=== PATIENT | male | born 1965 | race Caucasian/White ===

== ENCOUNTER → 2020-07-15 | Outpatient (CLI) | payer BC ==
--- NOTE | 2020-07-15 19:23 | CT ---
EXAMINATION TYPE: CT sinus wo con DATE OF EXAM: 07/15/2020 COMPARISON: None HISTORY: Nasal congestion CT DLP: 642.5 mGycm CONTRAST: 0 mL of Isovue 300 The paranasal sinuses are examined in the axial plane at 2 mm thick sections. Reconstructed images i n the coronal plane were obtained. There is some mucosal thickening within the anterior right sphenoid sinus. Minimal mucosal thickening s within posterior ethmoid air cells. The maxillary sinuses are clear. The frontal sinuses are clear. The septum is evaluated. There is septal deviation to the left. Some left septal spurring is present .. The ostiomeatal units are patent. IMPRESSIONS: 1. Mild mucosal thickening within right anterior sphenoid sinus and posterior ethmoid air cells. 2. No suspicious air-fluid levels. 3. Left septal deviation
== END | disposition home or self-care (01) ==
LOC: RADCTMAIN 17:21
PROVIDERS: ATTEND Pediatrics
DX: J01.90 Acute sinusitis, unspecified (principal); J34.89 Other specified disorders of nose and nasal sinuses; J34.2 Deviated nasal septum
CPT/HCPCS: 70486

== ENCOUNTER 2023-01-27 07:15 | Day surgery (SDC) | payer BC ==
[~2023-01-27 07:15] MED LIST: ACETAMINOPHEN TAB 500 MG TAB PO PRN; DEXAMETHASONE SOD PHOSPHATE 4 MG/ML 1 ML VIAL IV ONE; HEPARIN SODIUM,PORCINE/PF 5,000 UNIT/0.5 ML SYRINGE SQ PRN; HYDROmorphone 0.5 MG/0.5 ML SYRINGE IVP PRN; LACTATED RINGERS 1,000 ML IV SCH; MIDAZOLAM 2 MG/2 ML VIAL IV PRN; ONDANSETRON 4 MG/2 ML VIAL IVP ONE; Pre Op ABX Message 1 EACH MISC MISCELLANE ONE; SCOPOLAMINE 1 MG/72 HR PATCH TRANSDERM ONE
--- NOTE | 2023-01-27 07:39 | P.GSHP ---
History of Present Illness H&P Date: 01/27/23 Chief Complaint: Right posterior neck lipoma 57-year-old male here for excision right posterior neck lipoma. Recent increase in size gradually. Mild soreness. Recent imaging shows 4 x 2 cm lipomatous mass. Past Medical History Past Medical History: CVA/TIA, Hyperlipidemia, Hypertension, Prostate Disorder Additional Past Medical History / Comment(s): enlarged prostate, hemorrhagic stroke due to spinal fluid loss from back fusion surgery, tinnitus History of Any Multi-Drug Resistant Organisms: None Reported Past Surgical History: Back Surgery, Hernia Repair Additional Past Surgical History / Comment(s): back fusion x2, illiac stents x2, hernia x2, spinal cord stimulator placed and removed. Past Anesthesia/Blood Transfusion Reactions: No Reported Reaction Additional Past Anesthesia/Blood Transfusion Reaction / Comment(s): blood transfusion without reaction Smoking Status: Former smoker - Past Family History Mother Family Medical History: Cancer Additional Family Medical History / Comment(s): breast Medications and Allergies Home Medications Medication Instructions Recorded Confirmed Type DULoxetine HCL [Cymbalta] 60 mg PO BID 01/20/23 01/20/23 History Dutasteride [Avodart] 1 tab PO DAILY 01/20/23 01/20/23 History Ibuprofen 400 mg PO Q4-6H PRN 01/20/23 01/20/23 History Lisinopril(Unk) 10 mg PO DAILY 01/20/23 01/20/23 History Pregabalin 200 mg PO BID 01/20/23 01/20/23 History Rosuvastatin Calcium 40 mg PO HS 01/20/23 01/20/23 History Tamsulosin HCl [Flomax] 0.4 mg PO HS 01/20/23 01/20/23 History Tapentadol HCl [Nucynta] 50 mg PO DAILY 01/20/23 01/20/23 History Allergies Allergy/AdvReac Type Severity Reaction Status Date / Time Unable to Assess Allergy Verified 01/19/23 16:12 Surgical - Exam Physical exam: General: Well-developed, well-nourished HEENT: Normocephalic, sclerae nonicteric, 5 x 3 cm lipoma right posterior neck Abdomen: Nontender, nondistended Extremities: No edema Neuro: Alert and oriented Assessment and Plan (1) Lipoma of neck Narrative/Plan: Will proceed with excision right posterior neck lipoma at this time. Risks of bleeding, infection, numbness, scarring, nerve injury, recurrence, seroma reviewed. He understands and wishes to proceed. Current Visit: Yes Status: Acute Code(s): D17.0 - ESTEVAN LIPOMATOUS NEOPLM OF SKIN, SUBCU OF HEAD, FACE AND NECK SNOMED Code(s): 51721574
[2023-01-27] MEDS ORDERED: KETOROLAC 30 MG/ML 1 ML VIAL ONE (08:16)
[2023-01-27] MEDS ORDERED: LIDOCAINE 2% INJ 20 MG/ML (2 ML VIAL) ONE (08:16)
[2023-01-27] MEDS ORDERED: GLYCOPYRROLATE 0.2 MG/ML 2 ML VIAL ONE (08:16)
[2023-01-27] MEDS ORDERED: ROCURONIUM 10 MG/ML (5 ML VIAL) IV ONE (08:16)
[2023-01-27] MEDS ORDERED: SUCCINYLCHOLINE CHLORIDE 200 MG/10 ML VIAL IV ONE (08:16)
[2023-01-27] MEDS ORDERED: NEOSTIGMINE 1 MG/ML 10 ML VIAL ONE (08:16)
[2023-01-27] MEDS ORDERED: NALOXONE 0.4 MG/ML 1 ML VIAL ONE (08:16)
[2023-01-27] MEDS ORDERED: PROPOFOL 10 MG/ML 20 ML VIAL IV ONE (08:16)
[2023-01-27] MEDS ORDERED: fentaNYL (PF) 50 MCG/ML 2 ML AMP ONE (08:16)
[2023-01-27] MEDS ORDERED: MIDAZOLAM 2 MG/2 ML VIAL ONE (08:16)
[2023-01-27] MEDS ORDERED: SODIUM CHLORIDE 0.9% 50 ML with ceFAZolin 2,000 MG IV ONE ×2 (08:30)
[2023-01-27] MEDS ORDERED: SODIUM CHLORIDE 0.9% 100 ML BAG ONE (08:30)
[2023-01-27] MEDS ORDERED: ceFAZolin 1,000 MG VIAL ONE (08:30)
[2023-01-27] MEDS ORDERED: BUPIVACAINE (PF) 0.25% 10 ML VIAL SQ ONE ×2 (08:45→08:54)
[2023-01-27] MEDS ORDERED: HYDROcodone/APAP 5-325MG 1 EACH TAB PO PRN (09:14)
[2023-01-27] MEDS ORDERED: NALOXONE 0.4 MG/ML 1 ML VIAL IV PRN (09:14)
--- NOTE | 2023-01-27 09:19 | P.OP ---
Date of Procedure: 01/27/23 Procedure(s) Performed: PREOPERATIVE DIAGNOSIS: Right posterior neck lipoma POSTOPERATIVE DIAGNOSIS: Same PROCEDURE: Excision right posterior neck lipoma with intermediate closure SURGEON: Danny SIERRA: Jannie Naranjo ANESTHESIA: Gen. COMPLICATIONS: None OPERATIVE PROCEDURE: Patient placed on the operative table in the supine position. Patient was placed under general anesthesia. The patient was placed in the right decubitus position. Right posterior neck prepped and draped sterilely. Horizontal incision made overlying the palpable mass. Dissection through the superficial subcutaneous fat took place using electrocautery. The lipoma was then encountered and able to be easily differentiated from the normal-appearing fat. About two thirds of this lipoma was able to be bluntly dissected. The remaining one third was excised using electrocautery. This measured 4 x 4 x 3 cm. Subcutaneous tissues were inspected. No bleeding was seen. Irrigation took place. Area was localized. Subcutaneous layers closed using interrupted 3-0 Vicryl sutures. Skin closed using a running 4-0 Monocryl suture. Skin glue applied. DISPOSITION: Stable to recovery room
[2023-01-27 09:30] VITALS: TEMP 97.1
[2023-01-27] MEDS ORDERED: ONDANSETRON 4 MG/2 ML VIAL IVP ONE (09:43)
[2023-01-27 10:20] VITALS: BP 122/73; PULSE 71; RESP 18
== END 2023-01-27 10:38 | disposition home or self-care (01) ==
LOC: OR 07:15
PROVIDERS: ATTEND Surgery
DX: D17.0 Benign lipomatous neoplasm of skin and subcutaneous tissue of head, face and neck (principal); I10 Essential (primary) hypertension; E78.5 Hyperlipidemia, unspecified; N42.9 Disorder of prostate, unspecified; Z98.890 Other specified postprocedural states; Z86.73 Personal history of transient ischemic attack (TIA), and cerebral infarction without residual deficits; Z87.891 Personal history of nicotine dependence; Z79.811 Long term (current) use of aromatase inhibitors; Z79.899 Other long term (current) drug therapy
CPT/HCPCS: 21552; 88304; 88305; J2250; J0330; J1100; J2310; J2710; J2405; J0690; J3010; J1885; J2704; J1644; J2001; J0665

== ENCOUNTER 2023-11-22 11:31 | Day surgery (SDC) | payer BC ==
[~2023-11-22 11:31] MED LIST changes: -ACETAMINOPHEN TAB 500 MG TAB PO PRN; -DEXAMETHASONE SOD PHOSPHATE 4 MG/ML 1 ML VIAL IV ONE; -HEPARIN SODIUM,PORCINE/PF 5,000 UNIT/0.5 ML SYRINGE SQ PRN; -LACTATED RINGERS 1,000 ML IV SCH; -MIDAZOLAM 2 MG/2 ML VIAL IV PRN; -ONDANSETRON 4 MG/2 ML VIAL IVP ONE; +ONDANSETRON 4 MG/2 ML VIAL IVP PRN; -Pre Op ABX Message 1 EACH MISC MISCELLANE ONE; -SCOPOLAMINE 1 MG/72 HR PATCH TRANSDERM ONE; +TRANEXAMIC 1,000 MG/100ML-NACL 1,000 MG in SALINE 1 100ML.BAG IV PRN; +TRANEXAMIC 1,000 MG/100ML-NACL 1,000 MG in SALINE 1 100ML.BAG IVPB PRN; +fentaNYL (PF) 50 MCG/ML 2 ML AMP IV PRN
[2023-11-22] MEDS: KETOROLAC 15 MG/ML 1 ML VIAL IVP PRN (12:04)
[2023-11-22] MEDS: FAMOTIDINE 20 MG/2 ML VIAL IVP PRN (12:05)
[2023-11-22] MEDS: ONDANSETRON 4 MG/2 ML VIAL IVP ONE (12:05)
[2023-11-22] MEDS: DEXAMETHASONE SOD PHOSPHATE 10 MG/ML 1 ML VIAL IV PRN (12:05)
[2023-11-22] MEDS: ACETAMINOPHEN TAB 500 MG TAB PO PRN (12:05)
[2023-11-22] MEDS: DOCUSATE 100 MG CAP PO PRN (12:06)
[2023-11-22] MEDS: oxyCODONE ER 10 MG TAB.ER.12H PO PRN (12:06)
[2023-11-22] MEDS: IV FLUID CONTINUATION 1,000 ML IV ONE (12:10)
[2023-11-22] MEDS: MIDAZOLAM 2 MG/2 ML VIAL IVP ONE (12:13)
[2023-11-22] MEDS: LACTATED RINGERS 1,000 ML IV SCH (12:29)
[2023-11-22] MEDS ORDERED: TRANEXAMIC 1,000 MG/100ML-NACL PREMIX BAG ONE (13:35)
[2023-11-22] MEDS ORDERED: GLYCOPYRROLATE 0.2 MG/ML 2 ML VIAL ONE (13:35)
[2023-11-22] MEDS ORDERED: SUCCINYLCHOLINE CHLORIDE 200 MG/10 ML VIAL IV ONE (13:35)
[2023-11-22] MEDS ORDERED: ROPIVACAINE 5 MG/ML 30 ML VIAL ONE (13:35)
[2023-11-22] MEDS ORDERED: PROPOFOL 10 MG/ML 20 ML VIAL IV ONE (13:35)
[2023-11-22] MEDS ORDERED: PHENYLEPHRINE 10 MG/ML VIAL ONE (13:35)
[2023-11-22] MEDS ORDERED: MIDAZOLAM 2 MG/2 ML VIAL ONE (13:35)
[2023-11-22] MEDS ORDERED: LIDOCAINE 1% INJ 10MG/ML (20 ML MDV) ONE (13:35)
[2023-11-22] MEDS ORDERED: HYDROmorphone (PF) 1 MG/ML ONE (13:35)
[2023-11-22] MEDS ORDERED: DEXAMETHASONE SOD PHOSPHATE 4 MG/ML 1 ML VIAL ONE (13:35)
[2023-11-22] MEDS ORDERED: ROCURONIUM 10 MG/ML (5 ML VIAL) IV ONE (13:35)
[2023-11-22] MEDS ORDERED: NEOSTIGMINE 1 MG/ML 10 ML VIAL ONE (13:35)
[2023-11-22] MEDS ORDERED: fentaNYL (PF) 50 MCG/ML 2 ML AMP ONE (13:35)
[2023-11-22] MEDS: ROPIVACAINE/EPI/CLONIDINE/KET 50 ML SYRINGE MISCELLANE PRN (14:15)
[2023-11-22] MEDS: LACTATED RINGERS 1,000 ML IV ONE (15:06)
[2023-11-22] MEDS ORDERED: HYDROcodone/APAP 5-325MG 1 EACH TAB PO PRN (15:59)
[2023-11-22] MEDS ORDERED: hydrOXYzine pamoate 25 MG CAP PO PRN (15:59)
[2023-11-22] MEDS ORDERED: MAGNESIUM HYDROXIDE 2,400 MG/30 ML CUP PO PRN (15:59)
[2023-11-22] MEDS ORDERED: ONDANSETRON 4 MG/2 ML VIAL IVP PRN (15:59)
[2023-11-22] MEDS ORDERED: NALOXONE 0.4 MG/ML 1 ML VIAL IV PRN (15:59)
--- NOTE | 2023-11-22 16:12 | P.OP ---
Date of Procedure: 11/22/23 Preoperative Diagnosis: severe right hip osteoarthritis Postoperative Diagnosis: same Procedure(s) Performed: right direct anterior total hip arthroplasty Implants: 1. [employer] Trident II Acetabular Cup, Size #52 2. Dayanara Insignia Size # 6 Femoral Stem, Standard Offset 3. Biolox delta femoral head, 36 mm, - 2.5 neck Anesthesia: GETA, regional Surgeon: Chris Swenson Anesthetist #1: Obed Sanchez Estimated Blood Loss (ml): 300 IV fluids (ml): 900 Pathology: none sent Condition: stable Disposition: PACU Indications for Procedure: the patient is a very pleasant 58-year-old male with a medical history significant for chronic low back pain and prior lumbar spine surgery while been seeing for right hip pain. His hip x-rays initially showed mild arthritis and an MRI was obtained which showed more diffuse arthritis. He had a diagnostic injection which had almost complete relief in his symptoms. His x-rays showed progressive arthritis with the most recent x-rays in September of this year showing complete loss of joint space. Given the patient's x-ray findings, MRI findings, and response to cortisone injection we both agreed to proceed with a total hip replacement. I had a long discussion with the patient in the office on the potential risks and complications of an elective total hip replacement through a direct anterior approach. Risks discussed include, but are certainly not limited to, risks from anesthesia, superficial infection requiring local wound care or antibiotics, deep jeff-prosthetic joint infection and the treatment required to eradicate infection, intraoperative fracture, postoperative periprosthetic fracture, damage to local blood vessels or nerves particularly the lateral femoral cutaneous nerve, delayed wound healing requiring local wound care or possibly sims rgical debridement, hip dislocation, leg length discrepancy, soft tissue irritation around the total hip implant such as iliopsoas tendinitis or trochanteric bursitis, wear and osteolysis from the implants, squeaking or audible noises, groin pain, thigh pain, heterotopic ossification, stiffness, aseptic loosening of the implants, dissatisfaction with surgical outcome, need for revision surgery, DVT, PE, swelling of the operative extremity, acute coronary event, stroke, failure to thrive, and possibly loss of life or limb. The patient understands that while these are the most common complications after an elective hip replacement there are certainly other less common complications possible. They were given ample time to ask questions regarding the potential complications of a hip replacement. Following our discussion the patient provided their verbal and written consent to go forward with an elective total hip replacement. Operative Findings: It was a large clear hip effusion. There was severe arthritis with multiple loose cartilaginous free bodies within the joint and delamination of the articular surface. Description of Procedure: The patient was identified in the preoperative holding area and the correct hip was marked with my initials. I reviewed the procedure and consent with the patient. All of their questions were answered. The patient was then brought back into the operating room by anesthesia. While on the [facility] anesthesia was administered by the anesthesia team. Preoperative antibiotics and tranexamic ac id were also given. After the patient was under anesthesia I examined their ankles to determine their preoperative leg length discrepancy. The skin over the anterior aspect of the hip was shaved to remove hair over the site of planned incision. Both feet and ankles were padded with webril and boots for the [place] were applied. The patient was then carefully transferred onto the [place] table. A perineal post was immediately placed. The arms were placed on arm holders and were well-padded. Both boots were secured to the spars on the [place] table. The patient was positioned so that the pelvis was centered over the post. Nonsterile drapes were applied. A timeout was performed identifying the correct patient, operative extremity, and procedure. At this point fluoroscopy was brought in to take preoperative images of the pelvis and operative hip. Using the standing AP pelvis from the office as a template, a comparable image was obtained with fluoroscopy. A metallic bar was used to create a bi-ischial line for use as a reference to leg length adjustments during the procedure. Global offset was also measured on both the operative and nonoperative leg. Fluoroscopy was then brought out and a pre-scrub using a chlorhexidine scrub brush was performed. The operative limb was then prepped and draped in the standard sterile fashion. An anterior longitudinal incision was made lateral and distal to the ASIS. The skin and subcutaneous tissues were incised sharply. The underlying tensor fascia was identified and incised in its midportion. The fascia was dissected free from the underlying muscle and the muscle belly was retracted. A blunt tipped cobra retractor was placed over the superior neck under the muscle fibers of the gluteus minimus. The deep enveloping fascia of the tensor was incised. The anterior leash of vessels were then identified and cauterized. The fascia between the rectus and the capsule was then incised and the pre-capsular fat was excised. A second Cobra was placed inferior to the neck. The interval between the rectus and iliocapsularis and the hip capsule was developed and a retractor was placed carefully over the anterior rim of the acetabulum. A T-shaped anterior capsulotomy was performed. The superior capsular leaflet was left in place in the inferior capsular flap was excised. The Cobra retractors were placed intracapsularly. We then made a femoral neck osteotomy according to preoperative and intraoperative templating and confirmed the level of the osteotomy using fluoroscopic imaging. The femoral head was removed, passed off to the back table, and sized. The superior capsular flap was excised. Retractors were placed circumferentially exposing the acetabulum. We then circumferentially debrided the acetabulum free of labrum and osteophytes. The pulvinar was removed to fully visualize the cotyloid fossa. We then sequentially reamed to achieve peripheral fit and excellent bleeding subchondral bone. The socket was thoroughly irrigated. The acetabular component was impacted into the appropriate position using fluoroscopy to guide version, inclination, and depth of insertion taking care to have a comparable image of the AP pelvis to the standing image taken in the office. An excellent press-fit was achieved and final position was confirmed using fluoroscopy. The press fit was augmented with bony cancellus dome screws. The liner was then impacted into the socket. Attention was then turned to the femur. The remnant dorsal lateral capsule was excised. The short external rotators were visible and protected. A bone hook was used to confirm appropriate translation of the trochanter away from the acetabulum. The leg was then extended and adducted and the bone hook was used to elevate the femur for broaching. A box osteotome and blunt tipped canal sound was then utilized to gain access to the femoral canal. We then sequentially broached the femur in appropriate anteversion until excellent torsional stability was achieved. The neck cut was brought flush to the trial broach with a calcar planar. A trial neck and head were then placed onto the broach and the hip was atraumatically reduced under direct visualization. External rotation to 90 was performed to assess stability. Fluoroscopy was brought in. An AP and lateral fluoroscopic image of the proximal femur was obtained to assess position and fill of the trial broach. An AP of the pelvis was then obtained and matched to the preoperative image taken. A bi-ischial bar was then placed and measurements were taken to assess changes in length and offset. The hip was then carefully dislocated, the proximal femur was exposed, and the trial implants were removed. The wound and proximal femur was thoroughly irrigated using sterile saline and pulsatile lavage. The final femoral implant was dispensed and gently tapped into place generating an excellent press-fit. The trunnion was cleansed and the final head was tapped into place to engage the Serrato taper. The acetabulum was irrigated and visualized to be free of debris. The hip was carefully reduced. Stability was checked clinically with external rotation to 90 and there was no evidence of instability. Final fluoroscopic images were taken. The wound was then thoroughly irrigated and soaked with a dilute Betadine rinse for 3 minutes. 3 L of sterile saline was irrigated through the wound using pulsatile lavage. Local anesthetic cocktail was injected into the soft tissues around the surgical field. The wound was then closed in layers. A sterile dressing was placed over the surgical incision. The drapes were taken down and the patient was carefully transferred off of the [place] table. Following removal of the boots the leg lengths felt acceptable. The patient was then taken to recovery room having tolerated the procedure well. Obed Sanchez PA-C was required as a skilled assistant men's soccer coach due to the complexity of surgery for patient positioning, draping, exposure, retraction, closure of wound and application of dressing. PLAN: The patient can weight-bear as tolerated on the operative extremity. DVT prophylaxis with aspirin 81 mg twice a day based on preoperative risk stratification. Physical therapy for gait training. Leave surgical dressing in place. Internal medicine for perioperative medical management.
--- NOTE | 2023-11-22 16:37 | XR ---
EXAMINATION TYPE: XR Hip Limited RT, [place] guidance operating room Intraoperative/procedural fluoroscopi c services were provided. Total fluoroscopy time is 41.6 seconds with a total of 8 submitted images t o PACS. Please see the operative/procedural note for further details. DAP: 3.3050 Gycm2
[2023-11-22] MEDS ORDERED: AZELASTINE 137MCG/SPRAY NASAL PRN (17:28)
[2023-11-22] MEDS ORDERED: LORATADINE 10 MG TAB PO PRN (17:28)
[2023-11-22] MEDS: HYDROmorphone 1 MG/ML 1 ML SYRINGE IVP PRN (17:48)
--- NOTE | 2023-11-22 20:22 | P.CONS ---
History of Present Illness - Reason for Consult Consult date: 11/22/23 Medical management Requesting physician: Chris Swenson - Chief Complaint Right hip surgery - History of Present Illness This is a pleasant 58-year-old patient who follows with Dr. Luciano Craig. Chronic stable medical conditions include COPD, TIA, hypertension, hyperlipidemia, BPH, chronic tinnitus, had a prior hemorrhagic stroke from spinal fluid leak following lumbar spine surgery. Currently postprocedure has some pain controlled. No nausea vomiting. Review of systems: GEN.: None EYES: None HEENT: [Tinnitus NECK: None RESPIRATORY: None CARDIOVASCULAR: None GASTROINTESTINAL: None GENITOURINARY: None MUSCULOSKELETAL: Joint pains e LYMPHATICS: None HEMATOLOGICAL: None PSYCHIATRY: None NEUROLOGICAL: None Social history: Retired from construction work. Smoked a pack a day for 15 to 20 years. Stopped in 2016. Alcohol rarely. Physical examination: VITAL SIGNS: Afebrile, 94, 16, 131 x 77, 96% on 2 L GENERAL: BMI 35.4, reclining bed awake not in distress. EYES: Pupils equal. Conjunctiva kisha l. HEENT: External appearance of nose and ears normal, oral cavity grossly normal. NECK: JVD not raised; masses not palpable. HEART: First and second heart sounds are normal; no edema. LUNGS: Respiratory rate normal; clear to auscultation. ABDOMEN: Soft, nontender, liver spleen not palpable, no masses palpable. PSYCH: Alert and oriented x3; mood and affect kisha l. MUSCULOSKELETAL:No Clubbing/cyanosis;muscles-grossly intact. Dressing over the right hip incision site NEUROLOGICAL: Cranial nerves grossly intact; no facial asymmetry, power and sensation grossly intact. LYMPHATICS: No lymph nodes palpable in the axilla and neck INVESTIGATIONS, reviewed in the clinical context: November 14, 2023: White count 5.3 hemoglobin 16.8 platelets 169 sodium 142 potassium 4.7 BUN 10.9 creatinine 0.9 Assessment plan: -Right total hip arthroplasty Pain controlled. IV cefazolin for infection prophylaxis. Aspirin for DVT prophylaxis -Obesity BMI 35.4 -GERD Omeprazole -BPH Flomax -Essential hypertension Hold off Zestril for now. Follow blood pressure closely. Care was discussed with the patient. Questions answered. Thank you Dr. 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 ears,currently no medications for COPD, PAD, chronic sinusitis, chronic back pain History of Any Multi-Drug Resistant Organisms: None Reported Past Surgical History: Back Surgery, Hernia Repair Additional Past Surgical History / Comment(s): back fusion x2 - 2 surgeries for spinal fluid leak repair 2016, illiac stents x2, umbilical and Rt. inguinal hernia repairs, spinal cord stimulator placed and removed Past Anesthesia/Blood Transfusion Reactions: No Reported Reaction Additional Past Anesthesia/Blood Transfusion Reaction / Comm: blood transfusion without reaction Past Psychological History: No Psychological Hx Reported Additional Psychological History / Comment(s): takes cymbalta and pregabalin for pain Smoking Status: Former smoker Past Alcohol Use History: Rare Additional Past Alcohol Use History / Comment(s): quit 2015, smoked 1ppd x 15-20 yrs. one drink/year Past Drug Use History: None Reported - Past Family History Mother Family Medical History: Chest Pain / Angina Additional Family Medical History / Comment(s): multiple benign breast tumors Father Family Medical History: Myocardial Infarction (MA) Medications and Allergies Home Medications Medication Instructions Recorded Confirmed Type DULoxetine HCL [Cymbalta] 60 mg PO BID 01/20/23 11/22/23 History Pregabalin 200 mg PO BID 01/20/23 11/22/23 History Rosuvastatin Calcium 40 mg PO HS 01/20/23 11/22/23 History Tamsulosin HCl [Flomax] 2 tab PO HS 01/20/23 11/22/23 History Tapentadol HCl [Nucynta] 50 mg PO Q6H PRN 01/20/23 11/22/23 History Azelastine HCl [Astepro] 1 spray NASAL BID PRN 11/17/23 11/22/23 History Cetirizine HCl [Zyrtec] 10 mg PO DAILY PRN 11/17/23 11/22/23 History Diclofenac Sodium [Voltaren] 75 mg PO BID 11/17/23 11/22/23 History Ergocalciferol [Vitamin D2 (1250 1,250 mcg PO WEEKLY 11/17/23 11/22/23 History Mcg = 61905 Iu)] lisinopriL [Zestril] 10 mg PO HS 11/17/23 11/22/23 History Aspirin 81 mg PO BID #60 tab 11/22/23 Rx Diclofenac Sodium [Voltaren] 75 mg PO BID #60 tab 11/22/23 Rx Docusate [Colace] 100 mg PO BID #60 capsule 11/22/23 Rx HYDROcodone/APAP 5-325MG [[place] 1 - 2 tab PO Q6HR PRN #32 tab 11/22/23 Rx 5-325] Omeprazole 40 mg PO DAILY #30 cap 11/22/23 Rx Allergies Allergy/AdvReac Type Severity Reaction Status Date / Time No Known Allergies Allergy Verified 11/22/23 11:50 Physical Exam Vitals: Vital Signs Temp Pulse Resp BP Pulse Ox 11/22/23 18:30 94 131/77 96 11/22/23 18:15 100 78/53 90 L 11/22/23 18:00 97 112/70 99 11/22/23 17:45 91 118/75 91 L 11/22/23 17:30 92 127/71 96 11/22/23 17:15 98.0 F 98 17 111/81 95 11/22/23 17:05 96 11/22/23 16:42 84 17 118/53 96 11/22/23 16:27 87 17 106/51 99 11/22/23 16:12 91 17 117/55 96 11/22/23 15:57 97.5 F L 107 H 14 117/55 96 11/22/23 12:19 88 16 144/73 96 11/22/23 12:01 98.4 F 91 16 147/89 95 Intake and Output 11/22/23 11/22/23 11/22/23 06:59 14:59 22:59 Intake Total 1050 940 Output Total 300 Balance 1050 640 Intake: IV 1050 400 Oral 540 Output: Estimated Blood Loss 300 Other: Weight 108.7 kg 108.7 kg
[2023-11-22] MEDS: SODIUM CHLORIDE 0.9% 1,000 ML IV SCH (21:08)
[2023-11-22] MEDS: PREGABALIN 100 MG CAP PO SCH (21:18)
[2023-11-22] MEDS: ASPIRIN 81 MG PO SCH (21:22)
[2023-11-22] MEDS: TAMSULOSIN 0.4 MG CAP.ER.24H PO SCH (21:22)
[2023-11-22] MEDS: SENNOSIDES-DOCUSATE SODIUM 1 EACH TAB PO SCH (21:23)
[2023-11-22] MEDS: DULoxetine HCL 60 MG CAPSULE.DR PO SCH (21:23)
[2023-11-22] MEDS: ATORVASTATIN 80 MG TAB PO SCH (21:23)
[2023-11-23] MEDS: HYDROcodone/APAP 10-325MG 1 EACH TAB PO PRN (03:54)
[2023-11-23] MEDS: MULTIVITAMINS, THERA 1 EACH TAB PO SCH (07:43)
[2023-11-23 07:59] VITALS: BP 124/70; PULSE 79; RESP 18; TEMP 97.9
[2023-11-23] MEDS: FAMOTIDINE 20 MG TAB PO SCH (08:02)
--- NOTE | 2023-11-23 09:28 | P.DS ---
Providers Expected date of discharge: 11/23/23 Attending physician: Chris Swenson Consults: 11/22/23 15:59 Consult Physician Routine Consulting Provider: Roc Dunbar Consult Reason/Comments: post op medical management Do you want consulting provider notified?: Yes Primary care physician: Ryder Craig - Discharge Diagnosis(es) (1) Osteoarthritis of right hip Current Visit: Yes Status: Acute (2) Status post total hip replacement, right Current Visit: Yes Status: Acute Hospital Course: This is a 58-year-old male patient, with past medical history of right hip osteoarthritis, who failed nonsurgical interventions, who underwent right direct anterior total hip arthroplasty and admitted on 11/22/2023. He has been up out of bed and walking. His pain has been well-controlled. His wound dressing is clean, dry, and intact. Plan to discharge home today. Please see med rec for a list of accurate medications. Patient Condition at Discharge: Good Plan - Discharge Summary Discharge Rx Participant: Yes New Discharge Prescriptions: New Aspirin 81 mg PO BID #60 tab Docusate [Colace] 100 mg PO BID #60 capsule Diclofenac Sodium [Voltaren] 75 mg PO BID #60 tab Omeprazole 40 mg PO DAILY #30 cap oxyCODONE-APAP 5-325MG [Percocet 5-325 mg] 1 tab PO Q6HR PRN #28 tab PRN Reason: Pain No Action Pregabalin 200 mg PO BID Tapentadol HCl [Nucynta] 50 mg PO Q6H PRN PRN Reason: Pain Tamsulosin HCl [Flomax] 2 tab PO HS Azelastine HCl [Astepro] 1 spray NASAL BID PRN PRN Reason: Allergy Symptoms lisinopriL [Zestril] 10 mg PO HS Cetirizine HCl [Zyrtec] 10 mg PO DAILY PRN PRN Reason: Allergy Symptoms Rosuvastatin Calcium 40 mg PO HS DULoxetine HCL [Cymbalta] 60 mg PO BID Ergocalciferol [Vitamin D2 (1250 Mcg = 87429 Iu)] 1,250 mcg PO WEEKLY Diclofenac Sodium [Voltaren] 75 mg PO BID Discharge Medication List DULoxetine HCL [Cymbalta] 60 mg PO BID 01/20/23 [History] Pregabalin 200 mg PO BID 01/20/23 [History] Rosuvastatin Calcium 40 mg PO HS 01/20/23 [History] Tamsulosin HCl [Flomax] 2 tab PO HS 01/20/23 [History] Tapentadol HCl [Nucynta] 50 mg PO Q6H PRN 01/20/23 [History] Azelastine HCl [Astepro] 1 spray NASAL BID PRN 11/17/23 [History] Cetirizine HCl [Zyrtec] 10 mg PO DAILY PRN 11/17/23 [History] Diclofenac Sodium [Voltaren] 75 mg PO BID 11/17/23 [History] Ergocalciferol [Vitamin D2 (1250 Mcg = 41310 Iu)] 1,250 mcg PO WEEKLY 11/17/23 [History] lisinopriL [Zestril] 10 mg PO HS 11/17/23 [History] Aspirin 81 mg PO BID #60 tab 11/22/23 [Rx] Diclofenac Sodium [Voltaren] 75 mg PO BID #60 tab 11/22/23 [Rx] Docusate [Colace] 100 mg PO BID #60 capsule 11/22/23 [Rx] Omeprazole 40 mg PO DAILY #30 cap 11/22/23 [Rx] oxyCODONE-APAP 5-325MG [Percocet 5-325 mg] 1 tab PO Q6HR PRN #28 tab 11/23/23 [Rx] Follow up Appointment(s)/Referral(s): Chris Swenson MD [Medical Doctor] - 2 Weeks Activity/Diet/Wound Care/Special Instructions: 1. Weight-bear as tolerated on your operative extremity unless instructed otherwise. Use a walker or other assistive device to ambulate. 2. Leave surgical dressing in place. If your dressing becomes saturated with blood, there is drainage, or the dressing becomes loose please contact the office. 3. It is okay to shower with your surgical dressing, but do not submerge in water (no hot tubs, bath's, swimming etc.) 4. Make sure to take her blood clot prevention medication as prescribed (aspirin, Eliquis, Xarelto, and Plavix are commonly prescribed medications for blood clot prevention) 5. While taking Dinuba or Percocet for pain make sure you're taking a stool softener (Colace) and drink lots of water. 6. Keep all follow-up appointments as scheduled. You will usually be seen in 1-2 weeks following surgery. 7. Please contact the office with any questions or concerns [phone] Discharge Disposition: HOME WITH HOME HEALTH SERVICES
[2023-11-23 09:48] LABS: Basophils # (A) 0.02 X 10*3/uL (0.00-0.10); Basophils % (A) 0.1 %; Eosinophils # (A) 0 X 10*3/uL (0.04-0.35); Eosinophils % (A) 0 %; HCT 40.3 % (39.6-50.0); HGB 13.3 g/dL (13.0-17.0); Lymphocytes # (A) 0.73 X 10*3/uL (0.90-5.00); Lymphocytes % (A) 5.1 %; MCV 97.1 FL (80.0-97.0); Mean Platelet Volume 12.5 FL (9.5-12.2); Monocytes # (A) 0.85 X 10*3/uL (0.20-1.00); NRBC Per 100 WBC 0 X 10*3/uL (0.00-0.01); Neutrophils # (A) 12.63 X 10*3/uL (1.80-7.70); Neutrophils % (A) 88.4 %; Platelet Count 157 X 10*3/uL (140-440); RBC 4.15 X 10*6/uL (4.40-5.60); RDW 13.6 % (11.5-14.5); WBC 14.28 X 10*3/uL (4.50-10.00)
== END 2023-11-23 13:19 | disposition home health service (06) ==
LOC: OR 11:31 → 4SSUR 16:31 → OR 11-23 13:19
PROVIDERS: ATTEND Orthopaedic Surgery
DX: M16.11 Unilateral primary osteoarthritis, right hip (principal); E66.9 Obesity, unspecified; E78.5 Hyperlipidemia, unspecified; G89.18 Other acute postprocedural pain; G89.29 Other chronic pain; I10 Essential (primary) hypertension; J44.9 Chronic obstructive pulmonary disease, unspecified; K21.9 Gastro-esophageal reflux disease without esophagitis; N40.0 Benign prostatic hyperplasia without lower urinary tract symptoms; Z68.35 Body mass index [BMI] 35.0-35.9, adult; Z79.82 Long term (current) use of aspirin; Z79.899 Other long term (current) drug therapy; Z86.73 Personal history of transient ischemic attack (TIA), and cerebral infarction without residual deficits; Z98.890 Other specified postprocedural states
CPT/HCPCS: 94760; 97161; 64447; 85025; 73501; 27130; C1776; J2250; J1100; J0690 ×2; J2405; J3490; J1170 ×2; J1885

== ENCOUNTER → 2024-04-29 | Outpatient (CLI) | payer BC ==
[2024-04-29 12:45] VITALS: BP 148/90; PULSE 75; RESP 16
--- NOTE | 2024-04-29 17:38 | P.PAINPG ---
PQRS Measure Charge Sheet Comment: HISTORY OF PRESENT ILLNESS: A 59 yr old male as a referral from [facility] presents today w severe and chronic LBP > 10 yrs secondary to L4-S1 Laminectomy/ Fusion, R L4-S1 Pedicle Screws, BL Sacroiliitis for evaluation. Pt states pain level is provoked at 6 /10 in intensity, constant, localized in the lumbar spine, predominantly axial, dull in character w occasional shooting pain towards the BLEs. Pain is provoked by walking/ standing for periods > 15 min. Pain is alleviated by heat, ice, medications (Cymbalta, Lyrica), topical BioFreeze Gel, repositioning and rest . He has a narcotic agreement intact for [id number] #90 w a MME of 60 and was advised to adhere to it. PMH: OA, COPD, CVA (Hemorrhagic 2016), Hyperlipidemia, HTN, PAD, BPH PSH: L4-S1 Laminectomy/ Fusion x2 (2016), R L4-S1 Pedicle Screws, SCS placement/ removal, Iliac Stents x2, Umbilical Hernia Repair, R Inguinal Hernia Repair SH: Former 20 pack/ yr tobacco user, Rare ETOH use, No illicit drug use FH: Mo- Angina Fa- [place] All: See list Meds: See list REVIEW OF ORGAN SYSTEMS: CONSTITUTIONAL: No fevers or chills. No recent weight loss. NEUROLOGICAL: + numbness and tingling along the distal extremities. No seizure disorders or headaches. MUSCULOSKELETAL: + pain PSYCHIATRIC: Denies current depression or suicidal thoughts. Physical Examinations : Constitutional : Cooperative , not in acute distress . Neurologic : Cranial nerve II to XII intact. No focal neurological deficits. Psychiatric : alert & oriented x 3. Matching mood & appropriate affect. Judgment & insight intact. Musculoskeletal : Cervical Spine Motor strength in the deltoid and biceps: Normal right side. Normal Left side Motor strength biceps and the wrist extensors: Normal right side . Normal left side Motor strength in the triceps muscle: Normal right side. Normal left side Deep tendon reflexes: Normal at the biceps. Normal at Brachioradialis. Normal at triceps Vertebral body tenderness to deep palpation over Cervical facet loading test: positive bilaterally Spurling test: positive bilaterally Neck distraction test: positive bilaterally Veena sign: positive bilaterally Lumbar spine +Incisional scar intact Motor strength lower extremities ,thigh and legs 5/5 Right side , 5/5 Left side Deep tendon reflexes : Normal Knee Jerk. Normal Ankle Jerk Vertebral body tenderness over L5 Dimas Test positive BL L5-S1 Lumbar facet Loading Test: positive Right / positive Left Range of motion of the lumbar spine Flexion 30 degrees, extension 10 degrees Straight Leg Raise test: Left/ Right positive at degrees Maria T test: positive right / positive left. Severe tenderness over the Sacroiliac joint on the Right / Left sides Gaenslen test: positive bilaterally Seated flexion test: positive bilaterally. Sacral spine : Severe tenderness over the Sacroiliac joint: right side / left side Range of motion: Flexion of the lumbar spine <60 degrees Range of motion: Extension of the lumbar spine <20 degrees Gaenslen's Test positive Maria T test: positive right side / left side Thigh Thrust Test Sacral Thrust Test Imaging: X ray hip from 11/22/23 reviewed MRI non contrast cervical spine form 07/09/23 reviewed MRI non contrast lumbar spine form 07/09/23 reviewed Assessment/ Plan : BL Sacroiliitis, cervical radiculopathy, lumbar radiculopathy DEMOND form signed and faxed to [facility] in [place] for results of last LESI. Recommendation of caudal RAZ w lysis after obtaining records. Risks, benefits of procedure discussed and patient verbalized understanding. Admits to anti- coagulant use or medical history of diabetes. Protocol for discontinuation/ continuation of medications jeff procedure discussed. All questions answered. I have spent greater than 30 minutes on patient care today. Dr Saunders was available by phone for the evaluation of this patient. The time was used to review the medical records including relevant urine studies and Prescription history (MAPs), review of the available imaging, evaluation and examination of the patient, coordination of care with the medical staff and if applicable referring physicians, as well as creation of the medical record - Pain Location Neck Non-Pharmacological Interventions: Heat, Ice, Physical Therapy Pharmacological Interventions: PRN Medication, Scheduled Medication, Topical Medication Lower Back Non-Pharmacological Interventions: Heat, Ice Pharmacological Interventions: Epidural, Medication, Topical Medication Home Medications: Ambulatory Orders DULoxetine HCL [Cymbalta] 60 mg PO BID 01/20/23 Pregabalin 200 mg PO BID 01/20/23 Rosuvastatin Calcium 40 mg PO HS 01/20/23 Tamsulosin HCl [Flomax] 2 tab PO HS 01/20/23 Azelastine HCl [Astepro] 1 spray NASAL BID PRN 11/17/23 Cetirizine HCl [Zyrtec] 10 mg PO DAILY PRN 11/17/23 Ergocalciferol [Vitamin D2 (1250 Mcg = 87315 Iu)] 1,250 mcg PO WEEKLY 11/17/23 lisinopriL [Zestril] 10 mg PO HS 11/17/23 Aspirin 81 mg PO BID #60 tab 11/22/23 Diclofenac Sodium [Voltaren] 75 mg PO BID #60 tab 11/22/23 Docusate [Colace] 100 mg PO BID #60 capsule 11/22/23 Omeprazole 40 mg PO DAILY #30 cap 11/22/23 oxyCODONE-APAP 5-325MG [Percocet 5-325 mg] 1 tab PO Q6HR PRN #28 tab 11/23/23 Controlled Substance Measures - Controlled Substance Measures Is patient prescribed a controlled substance at discharge?: No
== END ==
LOC: PNWHC3 12:10
PROVIDERS: ATTEND Specialist
DX: M46.1 Sacroiliitis, not elsewhere classified (principal); M54.12 Radiculopathy, cervical region; M54.16 Radiculopathy, lumbar region; Z88.8 Allergy status to other drugs, medicaments and biological substances
CPT/HCPCS: 99211

== ENCOUNTER → 2024-06-05 | Outpatient (CLI) | payer BC ==
[2024-06-05 15:16] VITALS: BP 144/88; PULSE 92; RESP 16; TEMP 97.9
--- NOTE | 2024-06-05 15:59 | P.SLEEP ---
History of Present Illness DATE: 05/31/2024 CONSULTATION/NEW PATIENT EVALUATION HISTORY OF PRESENT ILLNESS/SLEEP-WAKE EVALUATION: 59-year-old gentleman had been evaluated in the sleep center for possible obstructive sleep apnea hypopnea syndrome. SLEEP SCHEDULE: Usually sleep schedule from 1112 PM until 10 AM. FALLING ASLEEP: Patient does have problems with falling asleep, has TV set in bedroom. DURING SLEEP: Patient usually sleeps on the side position with loud snoring, witnessed episodes of stop breathing by his . Patient wakes up from sleep 4 times with dry mouth, sweating, restless leg symptoms, nocturia. No history of hypnogogical hallucinations, sleep paralysis, or cataplexy. DURING THE DAY/WAKE STATE: In the morning patient wake up tired, has difficulties to pay attention, has problems with memory, concentration, sexual dysfunction. [place] sleepiness scale is 5. Patient does not take naps. PAST MEDICAL HISTORY: Back problems, sciatic nerve problems, BPH, atherosclerosis. PAST SURGICAL HISTORY: Right hip replacement, stent insertion to iliac artery. MEDICATIONS: Please see below. SOCIAL HISTORY: Please see below. FAMILY HISTORY: Please see below. REVIEW OF SYSTEMS: Loud snoring, multiple awakenings from sleep. No fevers. No double vision. No recent chest pain. No shortness of breath. No abdominal pain. No bleeding episodes. No blood in urine. No seizure episodes. PHYSICAL EXAMINATION: GENERAL: A pleasant patient without any distress. VITAL SIGNS: Please see below, weight 246 pounds, BMI 36.8. HEENT: PERRLA, EOMI. Evaluation of oropharynx showed tongue protrudes midline, low position of soft palate Mallampati 4. NECK: Supple. No JVD. Thyroid is not palpable. 17.5 inches in circumference. LUNGS: Clear to percussion and to auscultation. Good air exchange. No wheezing or rhonchi. HEART: S1, S2 regular. No murmurs, gallops or rubs. ABDOMEN: Soft and nontender. Bowel sounds are present. No organomegaly appreciated. EXTREMITIES: No clubbing or cyanosis. DIE POLISHER: Awake, alert, and oriented x3. Cranial nerves 2 to 7 intact. There is no fasciculation or atrophy noted. No focal deficits observed. ASSESSMENT: 1. Loud snoring, witnessed episodes of stop breathing during the sleep, extremely low position of soft palate Mallampati 4, wide neck 17.5 inches in circumference. Obstructive sleep apnea hypopnea syndrome. 2. Obesity, BMI 36.8. 3. Back problems. 4. Sciatic nerve problems. 5 BPH. 6 . Status post right hip replacement. 7. Status post stent insertion to celiac artery. PLAN: 1. Home sleep apnea test for evaluation of patient's breathing during sleep. 2. Following plan after reading sleep study. 3. Preferable position during sleep on the side. 4. No driving if patient feels any sleepiness. Patient is aware of civil and criminal liability for unsafe driving. 5. Sleep hygiene with regular sleep time for at least 7.5-8 hours. 6. Watching and losing weight. Thank you very much for referring this patient for consultation. Sincerely, Phil uH MD, PhD, FAASM. Diplomat of [place] [employer], Sleep Medicine Board by [place] [employer] [employer] Collar Tacker of [facility] [place] cc: Ryder Craig MD Past Medical History Past Medical History: CVA/TIA, Hyperlipidemia, Hypertension, Osteoarthritis (OA), Prostate Disorder Additional Past Medical History / Comment(s): enlarged prostate, hemorrhagic stroke due to spinal fluid loss from back fusion surgery, tinnitus History of Any Multi-Drug Resistant Organisms: None Reported Past Surgical History: Back Surgery, Hernia Repair Additional Past Surgical History / Comment(s): back fusion x2, illiac stents x2, hernia x2, spinal cord stimulator placed and removed. Past Anesthesia/Blood Transfusion Reactions: No Reported Reaction Additional Past Anesthesia/Blood Transfusion Reaction / Comment(s): blood weathers sfusion without reaction Past Psychological History: No Psychological Hx Reported Smoking Status: Former smoker Past Alcohol Use History: None Reported Additional Past Alcohol Use History / Comment(s): quit 2015, Past Drug Use History: None Reported - Past Family History Mother Family Medical History: Chest Pain / Angina, Osteoarthritis (OA) Additional Family Medical History / Comment(s): multiple benign breast tumors Father Family Medical History: Coronary Artery Disease (CAD), Hyperlipidemia, Hypertension, Myocardial Infarction (CO), Osteoarthritis (OA) Additional Family Medical History / Comment(s): LUNG PROBLEMS, SNORING, SINUS HEADACHES, RESTLESS LEGS Medications and Allergies Home Medications Medication Instructions Recorded Confirmed Type DULoxetine HCL [Cymbalta] 60 mg PO BID 01/20/23 06/05/24 History Pregabalin 200 mg PO BID 01/20/23 11/22/23 History Rosuvastatin Calcium 40 mg PO HS 01/20/23 11/22/23 History Tamsulosin HCl [Flomax] 2 tab PO HS 01/20/23 06/05/24 History Azelastine HCl [Astepro] 1 spray NASAL BID PRN 11/17/23 11/22/23 History Cetirizine HCl [Zyrtec] 10 mg PO DAILY PRN 11/17/23 11/22/23 History Ergocalciferol [Vitamin D2 (1250 1,250 mcg PO WEEKLY 11/17/23 06/05/24 History Mcg = 05068 Iu)] lisinopriL [Zestril] 10 mg PO HS 11/17/23 06/05/24 History Aspirin 81 mg PO BID #60 tab 11/22/23 Rx Diclofenac Sodium [Voltaren] 75 mg PO BID #60 tab 11/22/23 Rx Docusate [Colace] 100 mg PO BID #60 capsule 11/22/23 Rx Omeprazole 40 mg PO DAILY #30 cap 11/22/23 Rx oxyCODONE-APAP 5-325MG [Percocet 1 tab PO Q6HR PRN #28 tab 11/23/23 Rx 5-325 mg] Pregabalin [Lyrica] 200 mg PO DAILY 06/05/24 06/05/24 History Rosuvastatin Calcium [Crestor] 40 mg PO DAILY 06/05/24 06/05/24 History Tapentadol HCl [Nucynta] 50 mg PO DIRECTED PRN 06/05/24 06/05/24 History Allergies Allergy/AdvReac Type Severity Reaction Status Date / Time celecoxib [From Celebrex] Allergy Unknown Verified 04/29/24 12:46 simvastatin [From Zocor] Allergy Unknown Verified 04/29/24 12:46 Physical Exam Vitals: Vital Signs Temp Pulse Resp BP Pulse Ox 06/05/24 15:15 97.9 F 92 16 144/88 95 Intake and Output 06/05/24 06/05/24 06/05/24 06:59 14:59 22:59 Other: Weight 111.584 kg Sleep Note - Sleep Data ESS Total: 5 - Sleep Note Sleep Note: Temperature: 97.9 F Pulse Rate: 92 Respiratory Rate: 16 Blood Pressure: 144/88 SpO2: 95 Height: 5 ft 8.5 in Weight: 111.584 kg BMI: Neck Circumference: 17.5
== END ==
LOC: 3 N SLEEP 14:25
PROVIDERS: ATTEND Internal Medicine
DX: G47.33 Obstructive sleep apnea (adult) (pediatric) (principal); E66.9 Obesity, unspecified; Z68.36 Body mass index [BMI] 36.0-36.9, adult; M54.9 Dorsalgia, unspecified; M54.30 Sciatica, unspecified side; N40.0 Benign prostatic hyperplasia without lower urinary tract symptoms; Z98.890 Other specified postprocedural states; Z87.891 Personal history of nicotine dependence; Z88.6 Allergy status to analgesic agent; Z88.8 Allergy status to other drugs, medicaments and biological substances
CPT/HCPCS: 99211

== ENCOUNTER → 2024-07-02 | Outpatient (CLI) | payer BC ==
--- NOTE | 2024-07-03 15:49 | P.PCN ---
Description of Procedure: CLINICAL: A home sleep apnea test has been done for confirmation of possible obstructive sleep apnea-hypopnea syndrome. DESCRIPTION OF PROCEDURE: RESULTS: Recording time was 7 hours 48 minutes. Evaluation time was 7 hours 35 minutes. Evaluation time is sufficient for making conclusion about results of the test. Raw data of sleep recording has been reviewed and is adequate. Respiratory channel showed 183 apneas and 163 hypopneas. Apnea-hypopnea index was 58.7 per hour. Pulse rate in the range between minimum 56, maximum 94, average 70 by computer calculation. Lowest desaturation was 62%. IMPRESSION: 1. Extremely severe obstructive Sleep Apnea Hypopnea Syndrome with severe oxygen desaturation. Please see other impressions from consultation. PLAN: 1. The patient should have PAP titration for correction of respiratory abnormallities during sleep. 2. Sleep hygiene with regular time in bed for at least 8 hours. 3. Watching weight. 4. No driving if feeling any sleepiness. Thank you very much for allowing me to participate in the management of your patient. Sincerely, Phil Hu MD, PhD, FAASM Diplomat of [employer] Sleep Medicine Board of [employer] [employer] Batter Scaler of [facility] [place] cc: Ryder Craig MD
== END ==
LOC: 3 N SLEEP 16:29
PROVIDERS: ATTEND Internal Medicine
DX: G47.33 Obstructive sleep apnea (adult) (pediatric) (principal); R09.02 Hypoxemia; Z88.8 Allergy status to other drugs, medicaments and biological substances

== ENCOUNTER 2024-09-17 19:43 | Outpatient (CLI) | payer BC ==
--- NOTE | 2024-09-25 13:46 | P.PCN ---
Description of Procedure: CLINICAL: Titration with positive air pressure has been done for correction of respiratory abnormalities during sleep. DESCRIPTION OF PROCEDURE: The standard montage for clinical polysomnography included the electroencephalogram, the electrocardiogram, the mentalis surface electromyography and Lead II cardiography. The respiratory battery consisted of measurements of nasal /buccal air flow, pressure transducer measurements from the nose, thoracic and /or abdominal effort and intercostal surface electromyography. Video monitoring has been done to check for any parasomnia events. Nocturnal oxyhemoglobin saturations were obtained by finger oximetry. Step-toussaint titration with positive airway pressure was utilized to control respiratory events. Raw data of sleep recording has been reviewed and is adequate. RESULTS: Sleep efficiency was normal 92.5%. Latency to sleep onset was normal 23.0 minutes.]. Sleep architecture showed stage N1 was extremely short 0.5%, Delta sleep was short 1.8%, REM sleep was short 11.0%. Heart rate was minimum 72 BPM, maximum 77 BPM, average 75 BPM. EMG showed 6.1 periodic limb movements per hour with 0 micriarousals per hour. PAP titration have been done with CPAP up to the pressure 17 cm H2O. The best results were at the pressure 16 cm H2O. Apnea hypopnea index reduced to 1.6. IMPRESSION: 1. Obstructive sleep apnea hypopnea syndrome mostly on controle with PAP treatment. 2. No significant periodic limb movements have been documented. Please see other impressions from consultation. PLAN: 1. The patient will have treatment with positive air pressure equipment with the level of pressure AutoPap 1017 cm H2O and should use it every night for the whole night. 2. Watching and losing weight. 3. Sleep hygiene with regular time in bed for at least 8 hours. 4. No driving if feeling any sleepiness. 5. I will see the patient for follow up visit to explain the results of the test, recommendations, check compliance with treatment and make any necessary adjustment related to mask fitting, pressure and humidification. Thank you very much for allowing me to participate in the management of your patient. Sincerely, Phil Hu MD, PhD, FAASM Diplomat of [employer] Sleep Medicine Board of [place] [employer] Medicine It Sales Executive of [facility] [place] cc: Ryder Craig MD
== END 2024-09-18 05:35 | disposition home or self-care (01) ==
LOC: 3 N SLEEP 19:43
PROVIDERS: ATTEND Internal Medicine
DX: G47.33 Obstructive sleep apnea (adult) (pediatric) (principal); Z99.89 Dependence on other enabling machines and devices; Z88.6 Allergy status to analgesic agent; Z88.8 Allergy status to other drugs, medicaments and biological substances
CPT/HCPCS: 95811

== ENCOUNTER → 2024-12-19 | Outpatient (CLI) | payer BC ==
[2024-12-19 14:36] VITALS: BP 143/86; PULSE 74; RESP 16; TEMP 98
--- NOTE | 2024-12-19 15:26 | P.PROGSL ---
Subjective DATE: 12/19/2024 FOLLOW UP VISIT. Patient with obstructive sleep apnea hypopnea syndrome return to sleep center for follow-up visit. Recently patient had sleep study which documented obstructive sleep apnea hypopnea syndrome. Patient was initiated on PAP therapy and today is first visit after treatment was started. Patient was able to use PAP equipment every night for the whole night. The patient does not have significant problems with the mask, PAP pressure and humidification. [place] sleepiness scale is 8, which is in normal range. I checked information from PAP unit. PAP unit pressure 5-17, average 14.6 cm H2O. Usage is 100% and 97% for more then 4 hours, average 8.5 hours per night. Leak is 18.8 l/m, which is in acceptable range. Apnea Hypopnea Index is 2.3, which is normal. MEDICATIONS: Please see below During physical exam: GENERAL: A pleasant patient without any distress. VITAL SIGNS: Please see below, weight 258 pounds. HEENT: PERRLA, EOMI.low position of soft palate, Mallapati 4 . NECK: Supple. No JVD. LUNGS: Clear to percussion and to auscultation. Good air exchange. No wheezing or rhonchi. HEART: S1, S2 regular. ABDOMEN: Soft and nontender.[] EXTREMITIES: No clubbing or cyanosis. ASSISTANT AT SURGERY: Awake, alert, and oriented x3. No focal deficit. Impressions: 1. Obstructive sleep apnea-hypopnea syndrome. Patient demonstrated great compliance with treatment, benefiting from treatment. 2. Obesity. 3. Status post right total hip replacement. 4. Status post back fusion. 5. BPH. 6. Sciatic nerve problems. 7. Status post stent insertion to the illiac artery. Plan: 1. Continue using PAP equipment every night for the whole night. 2. To change air filter at least 1-2 times per month. 3. PAP unit should stay lower then position of the head. 4. Advised patient to remove all remaining water from humidifier canister daily and make it dry after each usage. Refill canister with fresh distilled water before each usage. 5. Sleep hygiene with regular time in bed for at least 8 hours. 6. Precautions related to driving. No driving if feel any sleepiness. 7. I will maintain prescription for PAP supplies including mask, tube, filters. 8. Follow up visit in 8 months or earlier if patient has any problems. 9. Watching and losing weight. 10. Patient still has some episodes of tiredness versus sleepiness during the day, we may consider multiple sleep latency test. Thank you very much for allowing me to participate in the management of your patient. Phil Hu MD, PhD, FAASM. Diplomat of [place] [employer], Sleep Medicine Board by [place] Analytical Data Scientist of [facility] [place] Objective - Vital Signs Vital Signs: Vital Signs Temp 98 F 12/19/24 14:35 Pulse 74 12/19/24 14:35 Resp 16 12/19/24 14:35 BP 143/86 12/19/24 14:35 Pulse Ox 98 12/19/24 14:35 FiO2 Intake & Output 12/18/24 12/19/24 12/19/24 18:59 06:59 18:59 Weight 117.027 kg Home Medications: Home Medications Medication Instructions Recorded Confirmed Type DULoxetine HCL [Cymbalta] 60 mg PO BID 01/20/23 06/05/24 History Pregabalin 200 mg PO BID 01/20/23 11/22/23 History Rosuvastatin Calcium 40 mg PO HS 01/20/23 11/22/23 History Tamsulosin HCl [Flomax] 2 tab PO HS 01/20/23 06/05/24 History Azelastine HCl [Astepro] 1 spray NASAL BID PRN 11/17/23 11/22/23 History Cetirizine HCl [Zyrtec] 10 mg PO DAILY PRN 11/17/23 11/22/23 History Ergocalciferol [Vitamin D2 (1250 1,250 mcg PO WEEKLY 11/17/23 06/05/24 History Mcg = 50173 Iu)] lisinopriL [Zestril] 10 mg PO HS 11/17/23 06/05/24 History Aspirin 81 mg PO BID #60 tab 11/22/23 Rx Diclofenac Sodium [Voltaren] 75 mg PO BID #60 tab 11/22/23 Rx Docusate [Colace] 100 mg PO BID #60 capsule 11/22/23 Rx Omeprazole 40 mg PO DAILY #30 cap 11/22/23 Rx oxyCODONE-APAP 5-325MG [Percocet 1 tab PO Q6HR PRN #28 tab 11/23/23 Rx 5-325 mg] Pregabalin [Lyrica] 200 mg PO DAILY 06/05/24 06/05/24 History Rosuvastatin Calcium [Crestor] 40 mg PO DAILY 06/05/24 06/05/24 History Tapentadol HCl [Nucynta] 50 mg PO DIRECTED PRN 06/05/24 06/05/24 History
== END ==
LOC: 3 N SLEEP 14:18
PROVIDERS: ATTEND Internal Medicine
DX: G47.33 Obstructive sleep apnea (adult) (pediatric) (principal); E66.9 Obesity, unspecified; N40.0 Benign prostatic hyperplasia without lower urinary tract symptoms; Z96.641 Presence of right artificial hip joint; Z95.820 Peripheral vascular angioplasty status with implants and grafts; Z99.89 Dependence on other enabling machines and devices; Z88.8 Allergy status to other drugs, medicaments and biological substances
CPT/HCPCS: 99212